=== PATIENT | female | born 1955 | race Caucasian/White ===

== ENCOUNTER 2021-06-17 08:49 | Emergency (ER) | payer SELFPAY ==
[~2021-06-17] VITALS: Ht 165.1 cm; Wt 49.9 kg
[2021-06-17 09:00] VITALS: BP_SYST 105
--- NOTE | 2021-06-17 09:00 | NUR ---
PT TRIAGED AND AWAITING AVAILBLE BED IN MAIN ER
--- NOTE | 2021-06-17 09:36 | NUR ---
DR GRULLON AT BEDSIDE [facility] EXAM.
--- NOTE | 2021-06-17 09:50 | NUR ---
Patient to ER bed H1 to gown for evaluation. Side rails up. Report given to NICOL RONQUILLO.
--- NOTE | 2021-06-17 10:05 | NUR ---
PT WALKED TO HALLWAY 1 WITH STEADY GAIT, RPEORTS TRIP AND FALL YESTERDAY AT 1700. WOKE UP WITH PAIN TO LEFT WRIST, LEFT HIP AREA AND LEFT PELVIC AREA PAIN, THROBBING IN SENSATION 11/20 Addendum: 06/17/21 at 1008 by [email or web address] PAIN 11/29 AT THIS TIME. DENIES ANY VAGINAL BLEEDING. PT INFOMED TO UNDRESS FOR ER D EXAMINATION. DENIES ANY NUMBNESS/TINGLING, GOOD RADIAL PULSES BILATERALLY. NO LEG SHORTENING NOTICED. SAMEERIITGEORGE FOR ER MD STRINGER.
--- NOTE | 2021-06-17 11:20 | NUR ---
Wrist brace applied to patient's L hand. PMS were present before and after brace placement.
--- NOTE | 2021-06-17 11:50 | NUR ---
PT BACK FROM CT SCAN
--- NOTE | 2021-06-17 13:05 | NUR ---
Patient given written and verbal discharge instructions and verbalizes understanding. ER MD discussed with patient the results and treatment provided. Patient in stable condition. ID arm band removed. Patient educated on pain management and to follow up with PMD. Pain Scale . Opportunity for questions provided and answered. Medication side effect fact sheet provided.
[2021-06-17 13:06] VITALS: BP_SYST 118
== END 2021-06-17 13:06 | disposition home or self-care (01) ==
LOC: SED 08:49
DX: S63.502A Unspecified sprain of left wrist, initial encounter (principal); S70.02XA Contusion of left hip, initial encounter; S00.81XA Abrasion of other part of head, initial encounter; W01.198A Fall on same level from slipping, tripping and stumbling with subsequent striking against other object, initial encounter; Y93.89 Activity, other specified; Y92.89 Other specified places as the place of occurrence of the external cause; Y99.8 Other external cause status
CPT/HCPCS: 72192-TC; 73502; 76376; 99284